=== PATIENT | male | born 1980 | race Caucasian/White ===

== ENCOUNTER 2022-05-21 10:06 | Outpatient (CLI) | payer BC, SELFPAY ==
[2022-05-21 10:27] LABS: Hematocrit 42.3 % (40.0-54.0); Hemoglobin 13.8 g/dL (14.0-18.0); Mean Corpuscular HGB Conc 32.6 g/dL (32.0-36.0); Mean Corpuscular Hemoglobin 27.7 pg (27.0-31.0); Mean Corpuscular Volume 84.9 fL (78.0-102.0); Mean Platelet Volume 10.2 fl (8.7-11.0); Platelet Count Result 255 K/mm3 (150-420); Red Blood Count 4.98 M/mm3 (4.70-6.10); Red Cell Distribution Width 13.1 % (11.6-14.4); White Blood Count 9.2 K/mm3 (4.8-10.8)
[2022-05-21 11:07] LABS: Alanine Aminotransferase 35 U/L (16-63); Albumin Level 3.5 g/dL (3.4-5.0); Alkaline Phosphatase 81 U/L (46-116); Anion Gap 7 mmol/L (8-16); Aspartate Amino Transferase 16 U/L (15-37); Bilirubin,Total 0.4 mg/dL (0.00-1.00); Blood Urea Nitrogen 19 mg/dL (7-18); Calcium 8.7 mg/dL (8.5-10.1); Carbon Dioxide 30 mmol/L (21-32); Chloride 104 mmol/L (98-108); Cholesterol 114 mg/dL (0-200); Estimated Glomerular Filt Rate > 60; Glucose 94 mg/dL (70-99); HDL Direct 29 mg/dL (40-60); LDL Cholesterol Calculated 43 mg/dL (<130); Osmolality Calculated 294 mOsm/kg (285-295); Potassium 4.5 mmol/L (3.5-5.1); Sodium 141 mmol/L (136-145); Total Protein 7.1 g/dL (6.4-8.2); Triglycerides 209 mg/dL (0-150)
== END 2022-05-21 10:07 | disposition home or self-care (01) ==
PROVIDERS: PCP Family Medicine; Visit Provider Family Medicine
DX: I25.10 Atherosclerotic heart disease of native coronary artery without angina pectoris (principal)
CPT/HCPCS: 36415; 80053; 80061; 85027

== ENCOUNTER 2023-03-23 14:43 | Outpatient (CLI) | payer BC, SELFPAY ==
--- NOTE | 2023-03-23 14:50 | ECG_ITS ---
Measurements Intervals [place] Rate: 69 P: 56 HI: 179 QRS: -62 QRSD: 152 T: 74 QT: 396 QTc: 426 Interpretive Statements SINUS RHYTHM LEFT AXIS DEVIATION LEFT BUNDLE BRANCH BLOCK ABNORMAL ECG NO PREVIOUS ECG AVAILABLE FOR COMPARISON Electronically Signed On 03-23-2023 15:04:45 PROPERTIES SUPERVISOR by Blake Martínez D.O.
== END 2023-03-23 14:44 | disposition home or self-care (01) ==
LOC: CHSCARD 14:47
PROVIDERS: PCP Family Medicine; Visit Provider Family Medicine
DX: I25.10 Atherosclerotic heart disease of native coronary artery without angina pectoris (principal); I44.7 Left bundle-branch block, unspecified; R94.31 Abnormal electrocardiogram [ECG] [EKG]
CPT/HCPCS: 93005

== ENCOUNTER 2024-09-12 16:29 | Outpatient (CLI) | payer BC, SELFPAY ==
--- OUTSIDE RECORDS SUMMARY | 2024-09-12 16:33 | XMS_ITS | Encounter Summary ---
Author Organization [facility] Address [facility] [place] [address] Care Team Providers Care Graduate Teacher Education Name Role Phone Vitaly France MD Primary Care Provider [phone] Neto Nelson MD Unavailable Unavailab Santana Holder MD Unavailable UnavailMarek Cox MD Unavailable Unavailable Clem Bryant MD Unavailable Unavail able Angelita Hopper MD Unavailable [phone] Katia Rivas MD Unavailable Encounter Details Date Type Department Care Team (Late st Contact Info) Description 09/24/2015 Abstract [facility] [address], [place] [address] , Generic Conversion, Social History Tobacco Use Types Packs/Day Years Used Date Smoking Tobacco: Former Alcohol Use Standard Drinks/Week Comments No 0 (1 standard drink = 0.6 oz pur e alcohol) Sex and Gender Information Value Date Recorded Sex Assigned at Not on file Legal Sex Male 9:43 PM CDT Gender Identity Not on file Sexual Orientation Not on file Occupation Industry Job Start Date Job End Date 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 [employer] Not on file Not on file No t on file documented as of this encounter Plan of Treatment Not on file documented as of this encounter Visit Diagnoses Not on filedocumented in this encounter Additional Health Concerns Infection Onset Date Last Indicated Resolved Time COVID-19 Rule Out 04/24/2021 04/24/2021 04/24/2021 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 documented as of this encounter Care Teams Graduate Teacher Education Relationship Specialty Start Date End Date Vitaly France MD PCP - General FAMILY PRACTICE 09/18/15 Neto Nelson MD CARDIOVASCULAR DISEASE 09/18/15 04/28/18 Santana Quiros MD [place] Title I Instructional Assistant CARDIOVASCULAR DISEASE 05/28/18 Marek Monroy MD Consulting Physician INTERVENTIONAL CARDIOLOGY 11/22/18 01/23/21 Clem Bryant MD [place] Title I Instructional Assistant CARDIOVASCULAR DISEASE 04/16/20 Angelita Hopper MD [address] [place] [address] Consulting Physician CARDIOVASCULAR DISEASE 01/24/21 Katia Rivas MD [address] [place] [address] Consulting Physician CARDIOVASCULAR DISEASE 03/24/22 documented as of this encounter
--- OUTSIDE RECORDS SUMMARY | 2024-09-12 16:33 | XMS_ITS | Encounter Summary ---
Author Organization [facility] Address [facility] [place] [address] Care Team Providers Care Construction Code Administrator Name Role Phone Vitaly France MD Primary Care Provider [phone] Neto Nelson MD Unavailable Unavailab Santana Holder MD Unavailable Unavailabl Marek Breaux MD Unavailable Unavailable Clem Bryant MD Unavailable Unavail able Angelita Hopper MD Unavailable [phone] Katia Rivas MD Unavailable Encounter Details Date Type Department Care Team (Late st Contact Info) Description 04/07/[address] 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 on file Not on file No t on file documented as of this encounter Plan of Treatment Not on file documented as of this encounter Visit Diagnoses Not on filedocumented in this encounter Additional Health Concerns Infection Onset Date Last Indicated Resolved Time COVID-19 Rule Out 04/24/2021 04/24/2021 04/24/2021 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 documented as of this encounter Care Teams Construction Code Administrator Relationship Specialty Start Date End Date Vitaly France MD PCP - General FAMILY PRACTICE 09/18/15 Neto Nelson MD CARDIOVASCULAR DISEASE 09/18/15 04/28/18 Santana Quiros MD [place] Sound Technician CARDIOVASCULAR DISEASE 05/28/18 Marek Monroy MD Consulting Physician INTERVENTIONAL CARDIOLOGY 11/22/18 01/23/21 Clem Bryant MD [place] Sound Technician CARDIOVASCULAR DISEASE 04/16/20 Angelita Hopper MD [address] [place] [address] Consulting Physician CARDIOVASCULAR DISEASE 01/24/21 Katia Rivas MD [address] [place], [place] [id number] Consulting Physician CARDIOVASCULAR DISEASE 03/24/22 documented as of this encounter
--- OUTSIDE RECORDS SUMMARY | 2024-09-12 16:33 | XMS_ITS | Clinical Summary ---
Author Organization [facility] Address [address] [place] [address] Care Team Providers Care Dependency Director Name Role Phone Vitaly France MD Primary Care Provider [phone] Santana Quiros MD Unavailable Unavailabl e Angelita Hopper MD Unavailable [phone] Katia Rivas MD Unavailable Allergies No known active allergies Medications aspirin 81 MG tablet Take 81 mg by mouth daily. 06/21/2015 Active fish oil 1000 MG Cap capsule Take 2,000 mg by mouth every morning. Active nitroglycerin 0.[address] 0.4 mg under the tongue every 5 (five) minutes as needed for Chest Pain. Active multi vitamin/mineral s tablet Take 1 tablet by mouth daily. Active famotidine 20 MG tablet Take 20 mg by mouth daily. Active spironolactone 25 MG tablet Take 1 tablet (25 mg total) by mouth daily. 30 tablet 11 12/21/2020 Active carvedilol 6.25 MG tablet Take 1 tablet (6.25 mg total) by mouth 2 (two) times daily. 60 tablet 12 05/17/2021 Active losartan (COZAAR) 50 MG tablet Take 1 tablet (50 mg total) by mouth daily. 30 tablet 11 01/29/2022 Active clopidogrel (PLAVIX) 75 MG tablet Take 1 tablet (75 mg total) by mouth daily. 90 tablet 3 02/04/2022 Active atorvastatin (LIPITOR) 80 MG tablet Take 1 tablet (80 mg total) by mouth every evening. 90 tablet 3 04/01/2022 Active Active Problems Problem Noted Date Diagnosed Date Ischemic cardiomyopathy 11/23/2018 Chest pain 09/21/2018 S/P drug eluting coronary stent placement 2017 Overview (06/15/2018): Xietammy Karishma GARTH of mid RCA Hyperlipidemia 09/24/2015 Hypertension 09/24/2015 Heart attack ([facility] 06/19/2015 Overview (10/05/2015): Recent acute coronary syndrome-anterior ST-elevation [place] status post thrombectomy followed by angioplasty and drug-eluting stent to the proximal LAD stenosis of 100?? with buddhism of NICOL-3 flow, currently angina free and tolerating moderate to severely strenuous activity without limitations. CAD (coronary artery disease) Family History Medical History Relation Comments CABG Father Heart Attack Father First [place] at age 18 Stent Cardiac Father CABG Maternal Grandfather Heart Attack Maternal Grandfather Open Heart Maternal Grandfather Valve Disease Maternal Grandfather Heart Attack Maternal Grandmother Stroke Maternal Grandmother Stent Cardiac Mother beginning in her 40s CABG Paternal Grandfather Heart Attack Paternal Grandfather Relation Status Comments Father Maternal Grandfather Maternal Grandmother Mother Paternal Grandfather Social History Tobacco Use Types Packs/Day Years Used Date Smoking Tobacco: Former Cigarettes Smokeless Tobacco: Current Chew Tobacco Cessation:Ready to Q uit: Not Asked; Counseling Given: Not Answered Alcohol Use Standard Drinks/Week Comments Not Currently 0 (1 standard drink = 0.6 oz pur e alcohol) Sex and Gender Information Value Date Recorded Sex Assigned at Not on file Legal Sex Male 9:43 PM CDT Gender Identity Not on file Sexual Orientation Not on file Occupation Industry Job Start Date Job End Date 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[employer] 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 file Not on file No t on file Last Filed Vital Signs Vital Sign Reading Time Taken Comments Blood Pressure 125/70 07/07/2022 2:17 PM CDT Pulse 70 07/07/2022 2:17 PM CDT Temperature 37 C (98.6 F) 04/24/2021 10: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 Respiratory Rate 18 07/07/2022 2:17 PM CDT Oxygen Saturation 98% 07/07/2022 2:17 PM CDT Inhaled Oxygen Concentration - - Weight 154.7 kg (341 lb) 07/07/2022 2:17 PM CDT Height 182.9 cm (6') 07/07/2022 2:17 PM CDT Body Mass Index 46.25 07/07/2022 2:17 PM CDT Plan of Treatment Health Maintenance Due Date Last Done Comments ASCVD Statin 1978 Colorectal Cancer Screening Colonoscopy (10 Years) 1978 Annual Physical 1981 Hepatitis C 01/23/1996 DTaP, Tdap and Td Vaccines ( 1 - Tdap) 1997 Hepatitis B Vaccines (1 of 3 - 19+ 3-dose series) 1997 Pneumococcal Vaccine: Pediatrics (0 to 5 Years) and At-Risk Patients (6 to 49 Years) (1 of 2 - PCV) 1997 ASCVD LDL 09/23/2019 09/22/2018, 06/20/2015 COVID-19 Vaccine (3 - 2023-2 5 season) 2023 11/17/2020, 10/17/2020 Meningococcal B Vaccine Aged Out No l onger eligible based on patient's age to complete this topic Meningococcal Vaccine Aged Out No caridad elizabeth eligible based on patient's age to complete this topic RSV Immunizations Under 20 Months Aged Out No longer eligible b ased on patient's age to complete this topic Medical Devices Implanted Type Area Head Animal Trainer Device Identifier Shelf Expiration Date Model / Serial / Lot Stent Xience Karishma Garth [id number] - [id number] Implanted:Qty: 1 on 02/26/2018 by Neto Nelson MD at [facility] Stent Coronary [employer]AJ[employer] VASCULAR 11/30/2018 [id number] / / [id number] Procedures Procedure Name Priority Date/Time Associated Diagnosis Comments LIPID PANEL Routine 09/22/2018 3:19 AM CDT from Last 3 Months or Most Recently Relevant to Health Maintenance Results * (ABNORMAL) LIPID PANEL (09/22/2018 3:19 AM CDT) CHOLESTEROL 81 MG/DL 09/22/2018 4:02 AM CDT [facility] Comment:DESIRABLE: <200 TRIGLYCERIDES 132 MG/DL 09/22/2018 4:02 AM T [facility] Comment:<150 NORMAL HDL 26(L) >39 MG/DL 09/22/2018 4:02 AM T [facility] LDL (CALCULATED) 29 MG/DL 09/23/19 19 4:02 AM CDT [facility] Comment:<100 OPTIMAL VLDL CALCULATION 26 MG/DL 09/23/19 19 4:02 AM CDT [facility] Comment:REFERENCE RANGE NOT ESTABLISHED CHOL/HDL RATIO 3.1 09/22/2018 4:02 AM T [facility] Comment:REFERENCE RANGE NOT ESTABLISHED LDL/HDL 1.1 09/22/2018 4:02 AM T [facility] Comment:REFERENCE RANGE NOT ESTABLISHED NON HDL CHOLESTEROL 55 MG/DL 09/22/2018 4:02 AM T [facility] Comment:REFERENCE RANGE NOT ESTABLISHED 09/22/2018 3:19 AM CDT Zurdo Pierre MD LABORATORY Final Res ult [facility] [address] [place] [phone], [id number] from Last 3 Months or Most Recently Relevant to Health Maintenance Insurance [facility] Advance Directives * Full Code (Latest Code Status on File) Date Activated Date Inactivated Comments 09/21/2018 5:03 PM 09/22/2018 2:30 PM * Full Code Date Activated Date Inactivated Comments 02/26/2018 4:42 PM 02/26/2018 9:05 PM Care Teams Dependency Director Relationship Specialty Start Date End Date Vitaly France MD PCP - General FAMILY PRACTICE 09/18/15 Santana Quiros MD [place] Beer Cooler CARDIOVASCULAR DISEASE 05/28/18 Angelita Hopper MD [address] [place], [place] [address] Consulting Physician CARDIOVASCULAR DISEASE 01/24/21 Katia Rivas MD [address] [place] [address] Consulting Physician CARDIOVASCULAR DISEASE 03/24/22
--- OUTSIDE RECORDS SUMMARY | 2024-09-12 16:33 | XMS_ITS | Encounter Summary ---
Author Organization [facility] Address [facility] [place] [address] Care Team Providers Care Cash Teller Name Role Phone Vitaly France MD Primary Care Provider [phone] Neto Nelson MD Unavailable Unavailab Santana Holder MD Unavailable Unavailabl Marek Breaux MD Unavailable Unavailable Clem Bryant MD Unavailable Unavail able Angelita Hopper MD Unavailable [phone] Katia Rivas MD Unavailable Encounter Details Date Type Department Care Team (Late st Contact Info) Description 05/30/2017 Abstract [facility] [address] [place] [address] , Generic Conversion, Social History Tobacco Use [...] Industry Job Start Date Job End Date 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 file Not on file No t on file documented as of this encounter Plan of Treatment Not on file documented as of this encounter Visit Diagnoses Not on filedocumented in this encounter Additional Health Concerns Infection Onset Date Last Indicated Resolved Time COVID-19 Rule Out 04/24/2021 04/24/2021 04/24/2021 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 documented as of this encounter Care Teams Cash Teller Relationship Specialty Start Date End Date Vitaly France MD PCP - General FAMILY PRACTICE 09/18/15 Neto Nelson MD CARDIOVASCULAR DISEASE 09/18/15 04/28/18 Santana Quiros MD [place] Auto Body Man CARDIOVASCULAR DISEASE 05/28/18 Marek Monroy MD Consulting Physician INTERVENTIONAL CARDIOLOGY 11/22/18 01/23/21 Clem Bryant MD [place] Auto Body Man CARDIOVASCULAR DISEASE 04/16/20 Angelita Hopper MD [address] [place] [address] Consulting Physician CARDIOVASCULAR DISEASE 01/24/21 Katia Rivas MD [address] [place] [address] Consulting Physician CARDIOVASCULAR DISEASE 03/24/22 documented as of this encounter
--- OUTSIDE RECORDS SUMMARY | 2024-09-12 16:33 | XMS_ITS | Encounter Summary ---
Author Organization [facility] Address [facility] [place] [address] Care Team Providers Care Paper Folder Name Role Phone Vitaly France MD Primary Care Provider [phone] Santana Quiros MD Unavailable UnavailMarek Cox MD Unavailable Unavailable Clem Bryant MD Unavailable Unavail able Angelita Hopper MD Unavailable [phone] Katia Rivas MD Unavailable Encounter Details Date Type Department Care Team (Late st Contact Info) Description 10/21/2019 Abstract [facility] [place] [address] [place] [address] Santana Quiros MD Social History Tobacco Use Types Packs/Day Years Used Date Smoking Tobacco: Former Cigarettes Smokeless Tobacco: Current Chew Alcohol Use Standard Drinks/Week Comments Yes 8.3 (1 standard drink = 0.6 oz p ure alcohol) Sex and Gender Information Value Date Recorded Sex Assigned at Not on file Legal Sex Male 9:43 PM CDT Gender Identity Not on file Sexual Orientation Not on file Occupation Industry Job Start Date Job End Date 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 Answer Date of Assessment Author Status No 09/21/2018 4:48 PM CDT Activ e * Do you have serious difficulty walking or climbing stairs? Answer Date of Assessment Author Status No 09/21/2018 4:48 PM CDT Miranda Jaeger R N Active * Do you have difficulty dressing or bathing? Answer Date of Assessment Author Status No 09/21/2018 4:48 PM CDT Miranda Jaeger R N Active * Because of a physical, mental, or emotional condition, do you have difficulty doing errands alone such as visiting a doctor's office or shopping? Answer Date of Assessment Author Status No 09/21/2018 4:48 PM CDT Miranda Jaeger R N Active documented as of this encounter Mental Status * Because of a physical, mental, or emotional condition, do you have serious difficulty concentrating, remembering, or making decisions? 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 documented as of this encounter Care Teams Paper Folder Relationship Specialty Start Date End Date Vitaly France MD PCP - General FAMILY PRACTICE 09/18/15 Santana Quiros MD [place] Rock Mason Apprentice CARDIOVASCULAR DISEASE 05/28/18 Marek Monroy MD Consulting Physician INTERVENTIONAL CARDIOLOGY 11/22/18 01/23/21 Clem Bryant MD [place] [employer] Mason Apprentice CARDIOVASCULAR DISEASE 04/16/20 Angelita Hopper MD [facility] [place] [address] Consulting Physician CARDIOVASCULAR DISEASE 01/24/21 Katia Rivas MD [address] [place] [address] Consulting Physician CARDIOVASCULAR DISEASE 03/24/22 documented as of this encounter
--- OUTSIDE RECORDS SUMMARY | 2024-09-12 16:33 | XMS_ITS | Encounter Summary ---
Author Organization [facility] Address [facility] [place] [address] Care Team Providers Care Plastics Repairer Name Role Phone Vitaly France MD Primary Care Provider [phone] Santana Quiros MD Unavailable Unavailabl e Angelita Hopper MD Unavailable [phone] Katia Rivas MD Unavailable Encounter Details Date Type Department Care Team (Latest Contact Info) Description 08/12/2022 FlowPay Message [facility] [place] [address] Katia Rivas MD [address] [place] [address] Question regarding [facility] CAROTID DUPLEX JESSICA Social History Tobacco Use Types Packs/Day Years Used Date Smoking Tobacco: Former Cigarettes Smokeless Tobacco: Current Chew Alcohol Use Standard Drinks/Week Comments Not Currently 0 (1 standard drink = 0.6 oz pur e alcohol) Sex and Gender Information Value Date Recorded Sex Assigned at Not on file Legal Sex Male 9:43 PM CDT Gender Identity Not on file Sexual Orientation Not on file Occupation Industry Job 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 No / Unsure 08/06/2022 3:42 PM CDT documented as of this encounter Functional Status [...] Diagnoses Not on filedocumented in this encounter Care Teams Plastics Repairer Relationship Specialty Start Date End Date Vitaly France MD PCP - General FAMILY PRACTICE 09/18/15 Santana Quiros MD [place] Tool [employer] Fixture Repairer CARDIOVASCULAR DISEASE 05/28/18 Angelita Hopper MD [address] [place], [place] [address] Consulting Physician CARDIOVASCULAR DISEASE 01/24/21 Katia Rivas MD [address] [place] [address] Consulting Physician CARDIOVASCULAR DISEASE 03/24/22 documented as of this encounter
--- OUTSIDE RECORDS SUMMARY | 2024-09-12 16:33 | XMS_ITS | Data Portability ---
Author Organization [facility] Address [address] [place] [address] Care Team Providers Care Shipboard Intelligence Analyst Name Role Phone NARA BUCKNER Primary Care Provider Assessment No assessment recorded. Plan of Treatment Reminders Order Date Submit Date Provider Last Modified By Organization Details Last Modified Time Details Appointments ANY 15 2024 03:30P Abelardo Buckner PA-C Not available Not available Not available Lab urinaly sis, complet e 2024 025 [facility], [address] [facility], [facility], [place], [address], 09/12/2024 17:09:51 CBC 2024 025 [facility], [address] [facility], [facility], [place], [address], 09/12/2024 17:09:50 CMP, serum or plasma 2024 025 [facility], [address] [facility], [facility], [place], [address], 09/12/2024 17:09:51 lipid panel, serum 2024 025 [facility], [address] [facility], [address], [place], [address], 09/12/2024 17:09:51 HbA1c (hemogl obin A1c), blood 2024 025 [facility], [address], [address], [place], [address], 09/12/2024 17:09:50 influen za virus A + B + SARS-Co V-2 (COVID1 9) Ag panel, rapid IA, upper respira tory specime n 2024 025 [email or web address] In-Office Order, Internal Use Only DO Not Attach Compendium DO Not Attach Compendium, Do Not Delete/merge, [id number] 05/04/2024 12:30:42 HbA1c (hemogl obin A1c), blood 2014 015 [facility], [address], [address], [place], [address], 05/17/2014 13:29:04 CMP, serum or plasma 2014 015 [facility], [address], [address], [place], [address], 05/17/2014 14:08:57 CBC 2014 015 [facility], [address], [address], [place], [address], 05/17/2014 14:08:59 lipid panel, serum 2014 015 [facility], [address], [address], [place], [address], 05/17/2014 14:08:57 TSH + free T4, serum 2014 015 [facility], [address], [address], [place], [address], 05/17/2014 14:08:58 Referral cardiol ogist referra l 2024 025 remigio Chu MD, [address], [place], [address], 05/04/2024 13:17:51 Procedures None recorde d. Surgeries None recorde d. Imaging x-ray, lumbar spine, 3 view 2014 015 [email or web address] Not available 05/19/2014 16:47:45 MRI, brain, ms protoco l 2014 015 [facility] (Radiology[facility] [place], [address], 05/22/2014 13:10:48 Medication Orders carvedi lol 6.25 mg tablet 2024 025 [facility], [facility] [place], [address], 09/12/2024 17:09:42 Tamiflu 75 mg capsule 2024 025 [facility], [facility] [place], [address], 09/12/2024 16:40:27 pravast atin 80 mg tablet 2024 025 [facility], [facility] [place], [address], 05/04/2024 12:31:09 naproxe n 500 mg tablet 2014 015 [employer], [address] [place] [address], [address], 05/04/2024 12:13:32 cyclobe nzaprin e 10 mg tablet 2014 [facility]15 [facility], [address] [place], [address], 05/04/2024 12:13:12 Patient TargetsNo targets recorded. Patient Instructions Encounter Date Encounter Id Patient Instructions Last Modified By Organization Details Last Modified Time 05/16/2014 [id number] have testing don e as discussed, I will call results, a referral to ortho after xray results, return to clinic as needed or for any questions [email or web address] Not available 05/16/2014 15:54:59 05/04/2024 [id number] cough: care instructions [email or web address] Not available 05/04/2024 12:30:42 A healthy lifestyle: care instructions [email or web address] Not available 05/04/2024 12:30:42 09/12/2024 [id number] A healthy lifestyle: care instructions [email or web address] Not available 09/12/2024 17:09:41 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 Referral for Co ronary arteriosclerosis Referring Physician: Nara Buckner, Family Medicine, Encounter Date: 05/04/2024 Results Created Date Observation Date Name Description Value Unit Range Abnormal Flag Note LastModifiedBy Organization Detail LastModifiedTime 09/23/1909/22/2018 Lipid 1996 panel - Serum or Plasm a cholesterol [mass/volume ] in serum or plasma 81 text: mg/dL DAYDAY STERO L 81 MG/DL 09/22 4:02 AM [facility] Not Available Not Available 05/20/2024 12:21:05 09/23/1909/22/2018 Lipid 1996 panel - Serum or Plasm a triglyceride [mass/volume ] in serum or plasma 132 text: mg/dL TRIGL YCERI TRUMAN 132 MG/DL 09/22 4:02 AM [facility] Not Available Not Available 05/20/2024 12:21:05 09/23/1909/22/2018 Lipid 1996 panel - Serum or Plasm a cholesterol in HDL [mass/volume ] in serum or plasma 26 text: >39 mg/dL low HDL 26 (L) >39 MG/DL 09/22 4:02 AM [facility] Not Available Not Available 05/20/2024 12:21:05 09/23/1909/22/2018 Lipid 1996 panel - Serum or Plasm a cholesterol in LDL [mass/volume ] in serum or plasma by calculation 29 text: mg/dL LDL (CALC ULATE D) 29 MG/DL 09/22 4:02 AM [facility] Not Available Not Available 05/20/2024 12:21:05 09/23/19 19 09/22/2018 Lipid 1996 panel - Serum or Plasm a cholesterol in VLDL [mass/volume ] in serum or plasma by calculation 26 text: mg/dL VLDL CALCU LATIO N 26 MG/DL 09/22 4:02 AM [facility] Not Available Not Available 05/20/2024 12:21:05 09/23/1909/22/2018 Lipid 1996 panel - Serum or Plasm a cholesterol. total/choles terol in HDL [mass ratio] in serum or plasma 3.1 CHOL/ HDL RATIO 3.1 09/22 4:02 AM [facility] Not Available Not Available 05/20/2024 12:21:05 09/23/1909/22/2018 Lipid 1996 panel - Serum or Plasm a cholesterol in LDL/choleste rol in HDL [mass ratio] in serum or plasma 1.1 LDL/H DL 1.1 09/22 4:02 AM [facility] Not Available Not Available 05/20/2024 12:21:05 09/23/1909/22/2018 Lipid 1996 panel - Serum or Plasm a cholesterol non HDL [mass/volume ] in serum or plasma 55 text: mg/dL NON HDL DAYDAY STERO L 55 MG/DL 09/22 4:02 AM [facility] Not Available Not Available 05/20/2024 12:21:05 09/23/1909/22/2018 Lipid 1996 panel - Serum or Plasm a interpretati on and review of laboratory results Abnorm al Not Available Not Available 12:21:05 05/04/19 25 05/04/2024 influ parisa virus A + B + SARS- CoV-2 (COVI D19) Ag panel , rapid IA, upper respi rator y speci men Flu A positi ve Not Available In-Office Order Internal Use Only DO Not Attach Compendium DO Not Attach Compendium, Do Not Delete/merge, [id number] 05/04/2024 12:21:33 05/04/19 25 05/04/2024 influ parisa virus A + B + SARS- CoV-2 (COVI D19) Ag panel , rapid IA, upper respi rator y speci men Flu B negati ve Not Available In-Office Order Internal Use Only DO Not Attach Compendium DO Not Attach Compendium, Do Not Delete/merge, [id number] 05/04/2024 12:21:33 05/04/19 25 05/04/2024 influ parisa virus A + B + SARS- CoV-2 (COVI D19) Ag panel , rapid IA, upper respi rator y speci men Rapid SARS CoV 2 Ag, QL IA, respiratory specimen negati ve Not Available In-Office Order Internal Use Only DO Not Attach Compendium DO Not Attach Compendium, Do Not Delete/merge, [id number] 05/04/2024 12:21:33 05/18/19 15 05/17/2014 x-ray , lumba r spine , 3 view No observ ation record ed. [address], [address], 05/17/2014 13:56:59 05/14/19 16 05/14/2015 imagi ng/di agnos tic resul t No observ ation record ed. [email or web address] [address], [address], 05/14/2015 13:31:58 Result Notes None recorded. Problems Name Problem SNOMED Code Status Onset Date Resolution Date Notes Provider Name and Address Organization Details Recorded Time Obesity 230696474 Active Remington Chapin [employer]USTRI[employer]OOFER HELPER-C Attn: Laura scott,[address] [place], [address], [place] [facility] 5 15:54:58 Chronic low back pain 178922540 Active Remington Chapin INDUSTRIAL ROOFER HELPER-C Attn: Laura g,[address] [place], [address], [facility] - [facility] 5 15:54:58 Fatigue 41140411 Active Remington Chapin INDUSTRIAL ROOFER HELPER-C Attn: Laura g,[address] [place], [address], [facility] 5 15:54:58 Visual impairment 763605007 Active Remington DORSEY Attn: Elhamverenice scott,[address], [place], [address], [facility] 5 15:54:58 Problem Notes None recorded. Procedures Surgical History Date Name Laterality Status Provider Name and Address Organization Details Recorded Time Appendectomy completed Ludmila Cheema LPN [facility] 05/11/2014 08:35:56 Vasectomy completed Ludmila Cheema LPN [facility] 05/11/2014 08:35:56 Imaging Results None recorded. Procedure Notes None recorded. Medical Equipment None Reported. Allergies No known drug allergies Medications Name Sig Start Date Stop Date Status Note LastModified by Organization Details LastModified Time losartan 50 mg tablet TAKE 1 TABLET BY MOUTH ONCE DAILY active Not Available Not Available No t Available cyclobenzap rine 10 mg tablet Take 1 tablet by mouth every 12 hours for 2 days then every night at bedtime for 7 days then as needed at bedtime for muscle pains 05/04 completed Not Available Not Available Not Available carvedilol 6.25 mg tablet Take 1 tablet twice a day by oral route for 90 days. 2024 active Not Available Not Available Not Avai lable Tamiflu 75 mg capsule Take 1 capsule twice a day by oral route for 10 days. 09/12 completed Not Available Not Available Not Available aspirin 81 mg tablet,gabriella yed release TAKE 1 TABLET BY MOUTH ONCE DAILY active Not Available Not Available No t Available famotidine 20 mg tablet TAKE 1 TABLET BY MOUTH TWICE DAILY active Not Available Not Available No t Available pravastatin 80 mg tablet TAKE ONE TABLET BY MOUTH DAILYN EEDS APPT BEFORE NEXT REFILL 2024 active Not Available Not Available Not Avai lable nitroglycer in 0.4 mg sublingual tablet DISSOLVE ONE TABLET UNDER THE TONGUE EVERY 5 MINUTES NEEDED FOR CHEST PAIN. DO NOT EXCEED A TOTAL OF 3 DOSES IN 15 MINUTES active Not Available Not Available No t Available naproxen 500 mg tablet Take 1 tablet by oral route every 12 hours for 7 days then as needed every 12 hours for pain 05/04 completed Not Available Not Available Not Available Vitals Date Recorded Body weight Body mass index (BMI) Body height Oxygen saturation Oxygen saturation in Arterial blood by Pulse oximetry Heart rate Systolic blood pressure Diastolic blood pressure Provider Name and Address Organization Details Last Updated DateTime 5 458069. 41 g 46.1 kg/m2 182.88 cm 95 % 95 % 65 /min 138 mm[Hg] 86 mm[Hg] Marlee Metzger MA [facility] 5 12:23:28 Date Recorded Respiratory rate Body weight Heart rate Body mass index (BMI) Body height Body temperature Systolic blood pressure Diastolic blood pressure Provider Name and Address Organization Details Last Updated DateTime 5 18 /min 589655. 51253 g 78 /min 43.9 kg/m2 182.88 cm 98.4 [degF] 130 mm[Hg] 84 mm[Hg] Ludmila Cheema LPN [facility] 5 14:56:55 Date Recorded Body height Body mass index (BMI) Body weight Heart rate Oxygen saturation Oxygen saturation in Arterial blood by Pulse oximetry Systolic blood pressure Diastolic blood pressure Provider Name and Address Organization Details Last Updated DateTime 5 182.88 cm 41.2 kg/m2 881907. 08 g 65 /min 97 % 97 % 124 mm[Hg] 78 mm[Hg] Marlee Metzger MA [facility] 5 16:39:53 Social History Question Answer Notes LastModified by Organizat ion Details LastModified Time Tobacco Smoking Status Former Smoker Quit in 2015 Marlee Metzger MA null, [facility] 05/04/2024 12:19:41 What Is Your Level Of Caffeine Consumption? Moderate Information not available 05/04/2024 What Type Of Diet Are You Following? REGULAR Information not available 05/04/2024 What Was The Date Of Your Most Recent Tobacco Screening? 09/12/2024 Information not available 09/12/2024 What Is Your Relationship Status? Information not available 05/04/2024 Do You Have Smoke And Carbon Monoxide Detectors In Your Home? No Information not available 05/04/2024 Are You Passively Exposed To Smoke? Yes Information not available 05/04/2024 Has Tobacco Cessation Counseling Been Provided? Yes Information not available 05/04/2024 On What Date Was Tobacco Cessation Counseling Provided? 09/12/2024 Information not available 09/12/2024 Sex: Unknown Functional Status Question Answer Note LastModified by Organizat ion Details LastModified Time Do you use any illicit or recreational drugs? No Information not available 05/04/2024 Do you or have you ever used any other forms of tobacco or nicotine? Yes Information not available 05/04/2024 What is your level of alcohol consumption? None Information not available 05/04/2024 Do you or have you ever used smokeless tobacco? Currently chews tobacco Information not available 05/04/2024 Are you currently employed? 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 Never used electronic cigarettes Information not available 05/04/2024 Mental Status Question Answer Note LastModified by Organization D etails LastModified Time Do you feel stressed (tense, restless, nervous, or anxious, or unable to sleep at night)? [id number] Information not available 05/04/2024 Family History Relationship Description Onset Age of this Age Resolved Age Notes LastModified by Organization Details LastModified Time Father Attention deficit hyperactivit y disorder [email or web address] Not available 05/2014 15:27:41 Father Depressive disorder [email or web address] Not available 05/2014 15:27:41 Father Heart disease [email or web address] Not available 05/2014 15:27:41 Father Hypertensive disorder Not available 05/2014 15:27:41 Father Hypercholest erolemia [email or web address] Not available 05/2014 15:27:41 Father Multiple sclerosis [email or web address] Not available 05/2014 15:27:41 Mother Heart disease [email or web address] Not available 05/2014 15:27:41 Mother Hypertensive disorder [email or web address] Not available 05/2014 15:27:41 Mother Hypercholest erolemia [email or web address] Not available 05/2014 15:27:41 Brother Multiple sclerosis [email or web address] Not available 05/2014 15:27:41 Medical History Condition Response Coronary Artery Disease N Other N Atrial Fibrillation N High Blood Pressure N Thyroid Problems N Kidney or Bladder Problems N GI Problems N Depression N COPD N Blood Clots N Have you had a mammogram in the last yea r? N Eating Disorder N Skin Problems N Anemia N Heart Attack (AK) N Anxiety Disorder N Diabetes N Muscle, Joint, or Bone Problems N Arthritis N Seizures/Epilepsy N Have you had a colonoscopy in the last 1 0 years? N Acid Reflux (GERD) N Hyperlipidemia Y Cancer N Stroke N Asthma N Allergies N Have you had a PSA blood test in the las t year? N ADHD N Substance Abuse N High Cholesterol N Hepatitis N Liver Disease N Schizophrenia N Headaches N Heart Failure N Osteoporosis N Immunizations Vaccine Type Date Status Note Provider Nam e and Address Organization Details Recorded Time COVID-19, mRNA, LNP-S, PF, 30 mcg/0.3 mL dose 10/17/2020 completed Not Available [facility] 16:19:31 COVID-19, mRNA, LNP-S, PF, 30 mcg/0.3 mL dose 11/17/2020 completed Not Available [facility] 16:19:31 Past Encounters Encounter ID Performer Location Encounter Start Date Encounter Closed Date Diagnosis/Indication Diagnosis SNOMED-CT Code Diagnosis ICD10 Code Diagnosis Note [id number] Remington CONN [address] [place] [address] 05/16/2014 14:34:27 05/19/2014 16:47:45 Obesity 036304947 Chronic low back pain 417529683 Fatigue 03660897 Visual impairment 817971912 [id number] Prasanna Medina MD [facility] [address] [place] [address] 05/04/2024 11:45:10 05/05/2024 08:46:50 Cough 20477441 R05.1 Coronary arteriosclerosis 01815716 I25.10 Morbid obesity 793535225 E66.01 Influenza caused by Influenza A virus 204164206 J09.X2 History of myocardial infarction 236492901 I25.2 [id number] Prasanna Medina MD [facility] [address] [place] [address] 09/12/2024 16:16:51 09/12/2024 17:11:33 History of myocardial infarction 325784227 I25.2 Dark-brown colored urine 6338354180 63808 R82.998 Obese class III 50289537 5 E66.813 Health Concerns Section Related Observation LastModified by Organization Detai ls LastModified Time None Recorded Concern Status LastModified by Organization Details LastModified Time None Recorded Advance Directives Directive None Recorded Payers Insurance Date Sequence Insurance Name Policy Number Policy [place] Covered Member ID [place] Member ID Guarantor Name 09/12/2024 1 [place] [id number] Alejandro Coles [id number] Candice Coles 09/12/2024 1 [place] [employer] Alejandro Coles [id number] Candice Coles Notes Date Note Type Note Provider Name and Address Organization Details Recorded Time 05/16/2014 text/html worsening back pain and numbness down right leg. states Dad and Brother has MS, brother was diagnosed at 29 yo. patient is having visual changes and some concerns about MS symptoms, was seen about a year ago for back pain and was informed of need for back surgery but opted against that Remington DORSEY Attn: Accounting,[address] [place], [address], [facility] 05/16/2014 15:55:15 05/04/2024 text/html flu like symptoms for 2 days...also history of multiple vessel disease..was removed from plavix by previous cardio..had a 100 percent blocked maker and AK in 2016..stented 3 vessels total..2016 to 2018... Nara Buckner PA-C Attn: Accounting,[address] [place], [address], [facility] 05/04/2024 12:35:45 09/12/2024 text/html needs refill of carvedilol..also notices dark foamy urine and a transient episode of rt flank pain...personal hx and family hx of AK..has lost 40 pounds thru workout and diet Nara Buckner PA-C Attn: Accounting,[address] [facility], [place], [address], [facility] 09/12/2024 17:11:31
--- OUTSIDE RECORDS SUMMARY | 2024-09-12 16:33 | XMS_ITS | Encounter Summary ---
Author Organization [facility] Address [facility] [place] [address] Care Team Providers Care Security Operations Center Analyst Name Role Phone Vitaly France MD Primary Care Provider [phone] Neto Nelson MD Unavailable Unavailab Santana Holder MD Unavailable UnavailMarek Cox MD Unavailable Unavailable Clem Bryant MD Unavailable Unavail able Angelita Hopper MD Unavailable [phone] Katia Rivas MD Unavailable Encounter Details Date Type Department Care Team (Latest Contact Info) Description 01/19/2018 Abstract [facility] , Soraida Mehta MD Social History Tobacco Use Types Packs/Day [...] 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 [employer] Not on file Not on file No t on file documented as of this encounter Plan of Treatment Not on file documented as of this encounter Visit Diagnoses Not on filedocumented in this encounter Additional Health Concerns Infection Onset Date Last Indicated Resolved Time COVID-19 Rule Out 04/24/2021 04/24/2021 04/24/2021 12:23 PM [employer] documented as of this encounter Care Teams Security Operations Center Analyst Relationship Specialty Start Date End Date Vitaly France MD PCP - General FAMILY PRACTICE 09/18/15 Neto Nelson MD CARDIOVASCULAR DISEASE 09/18/15 04/28/18 aSntana Quiros MD [place] Chocolate Production Machine Operator CARDIOVASCULAR DISEASE 05/28/18 Marek Monroy MD Consulting Physician INTERVENTIONAL CARDIOLOGY 11/22/18 01/23/21 Clem Bryant MD [place] Chocolate Production Machine Operator CARDIOVASCULAR DISEASE 04/16/20 Angelita Hopper MD [address], [place] [address] Consulting Physician CARDIOVASCULAR DISEASE 01/24/21 Katia Rivas MD [address] [place], [place] [address] Consulting Physician CARDIOVASCULAR DISEASE 03/24/22 documented as of this encounter
--- OUTSIDE RECORDS SUMMARY | 2024-09-12 16:33 | XMS_ITS | Encounter Summary ---
Author Organization [facility] Address [facility] [place] [address] Care Team Providers Care Electrical Apprentice Name Role Phone Vitaly France MD Primary Care Provider [phone] Neto Nelson MD Unavailable Unavailab Santana Holder MD Unavailable Unavailabl Marek Breaux MD Unavailable Unavailable Clem Bryant MD Unavailable Unavail able Angelita Hopper MD Unavailable [phone] Katia Rivas MD Unavailable Encounter Details Date Type Department Care Team (Late st Contact Info) Description 01/30/[address] 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 documented as of this encounter Care Teams Electrical Apprentice Relationship Specialty Start Date End Date Vitaly France MD PCP - General FAMILY PRACTICE 09/18/15 Neto Nelson MD CARDIOVASCULAR DISEASE 09/18/15 04/28/18 Santana Quiros MD [place] Data Warehouse Consultant CARDIOVASCULAR DISEASE 05/28/18 Marek Monroy MD Consulting Physician INTERVENTIONAL CARDIOLOGY 11/22/18 01/23/21 Clem Bryant MD [place] Data Warehouse Consultant CARDIOVASCULAR DISEASE 04/16/20 Angelita Hopper MD [address] [place] [address] Consulting Physician CARDIOVASCULAR DISEASE 01/24/21 Katia Rivas MD [address] [place] [address] Consulting Physician CARDIOVASCULAR DISEASE 03/24/22 documented as of this encounter
--- OUTSIDE RECORDS SUMMARY | 2024-09-12 16:33 | XMS_ITS | Continuity of Care Document ---
Author Organization [facility] Address [address] [place] [address] Care Team Providers Care Welder Tech Name Role Phone NARA BUCKNER Primary Care Provider Assessment No assessment recorded. Plan of Treatment Reminders Order Date Submit Date Provider Last Modified By Organization Details Last Modified Time Details Appointments ANY 15 2024 03:30P Abelardo Buckner PATamiC Not available Not available Not available Lab urinalysi s, complete 2024 025 [facility] [address] [facility], [place], [address], 09/12/2024 17:09:51 CBC 2024 025 [facility], [address] [facility], [place], [address], 09/12/2024 17:09:50 CMP, serum or plasma 2024 025 [facility], [address], [address], [place], [address], 09/12/2024 17:09:51 lipid panel, serum 2024 025 [facility], [address], [address], [place], [address], 09/12/2024 17:09:51 HbA1c (hemoglob in A1c), blood 2024 025 [facility], [address], [address], [place], [address], 09/12/2024 17:09:50 Referral None recorded. Procedures None recorded. Surgeries None recorded. Imaging None recorded. Medication Orders carvedilo l 6.25 mg tablet 2024 025 [facility] [address], [address], 09/12/2024 17:09:42 Patient TargetsNo targets recorded. Patient Instructions Encounter Date Encounter Id Patient Instructions Last Modified By Organization Details Last Modified Time 09/12/2024 [id number] A healthy lifestyle: care instructions jnanney Not available 09/12/2024 17:09:41 Reason for Referral None Reported. Problems Name Problem SNOMED Code Status Onset Date Resolution Date Notes Provider Name and Address Organization Details Recorded Time Obesity 405219323 Active Remington Chapin THREE DIMENSIONAL MAP MODELER-C Attn: Accountverenice scott,[address] [facility], [place], [place], [address] [place] [address] 2, [facility] - [facility] 5 15:54:58 Chronic low back pain 921292261 Active Remington Chapin THREE DIMENSIONAL MAP MODELER-C Attn: Accountin g,[address] [facility], [place], [place], [address] [place] [address] 2, [facility] - [facility] 5 15:54:58 Fatigue 89827427 Active Remington Chapin THREE DIMENSIONAL MAP MODELER-C Attn: Accountin g,[address] [facility], [place], [place], [address] [place] [address] 2, [facility] - [facility] 5 15:54:58 Visual impairment 041386540 Active Remington Chapin THREE DIMENSIONAL MAP MODELER-C Attn: Accountin g,[address] [facility], [place], [address], [facility] - SI 5 15:54:58 Problem Notes None recorded. Procedures Surgical History Date Name Laterality Status Provider Name and Address Organization Details Recorded Time Appendectomy completed Ludmila Cheema LPN [facility] 05/11/2014 08:35:56 Vasectomy completed Ludmila Cheema LPN [facility] 05/11/2014 08:35:56 Imaging Results None recorded. Procedure [...] Available Not Available Vitals Date Recorded Body height Body mass index (BMI) Body weight Heart rate Oxygen saturation Oxygen saturation in Arterial blood by Pulse oximetry Systolic blood pressure Diastolic blood pressure Provider Name and Address Organization Details Last Updated DateTime 5 182.88 cm 41.2 kg/m2 339171. 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 Never used electronic cigarettes Information not available 05/04/2024 Mental Status Question Answer Note LastModified by Organization D etails LastModified Time Do you feel stressed (tense, restless, nervous, or anxious, or unable to sleep at night)? [id number] Information not available 05/04/2024 Family History Relationship Description Onset Age of this Age Resolved Age Notes LastModified by Organization Details LastModified Time Father Attention deficit hyperactivit y disorder [email or web address] Not available 05/2014 15:27:41 Father Depressive disorder [email or web address] Not available 05/2014 15:27:41 Father Heart disease [email or web address] Not available 05/2014 15:27:41 Father Hypertensive disorder [email or web address] Not available 05/2014 15:27:41 Father Hypercholest erolemia [email or web address] Not available 05/2014 15:27:41 Father Multiple sclerosis Not available 05/2014 15:27:41 Mother Heart disease Not available 05/2014 15:27:41 Mother Hypertensive disorder [email or web address] Not available 05/2014 15:27:41 Mother Hypercholest erolemia Not available 05/2014 15:27:41 Brother Multiple sclerosis [email or web address] Not available 05/2014 15:27:41 Medical History Condition Response Coronary Artery Disease N Other N High Blood Pressure N Atrial Fibrillation N Thyroid Problems N Kidney or Bladder Problems N GI Problems N Depression N COPD N Blood Clots N Have you had a mammogram in the last yea r? N Skin Problems N Eating Disorder N Anemia N Heart Attack ([place]) N Anxiety Disorder N Diabetes N Muscle, [...] mcg/0.3 mL dose 10/17/2020 completed Not Available [facility] 16:19:31 COVID-19, mRNA, LNP-S, PF, 30 mcg/0.3 mL dose 11/17/2020 completed Not Available [facility] 16:19:31 Past Encounters Encounter ID Performer Location Encounter Start Date Encounter Closed Date Diagnosis/Indication Diagnosis SNOMED-CT Code Diagnosis ICD10 Code Diagnosis Note [id number] Prasanna Medina MD [facility] [address] [place] [address] 09/12/2024 16:16:51 09/12/2024 17:11:33 History of myocardial infarction 737212115 I25.2 Dark-brown colored urine 7326915445 96671 R82.998 Obese class III 58943351 5 E66.813 Health Concerns Section Related Observation LastModified by Organization Detai ls LastModified Time None Recorded Concern Status LastModified by Organization Details LastModified Time None Recorded Payers Encounter Date Sequence Insurance Name Policy Number Policy [place] Covered Member ID [place] Member ID Guarantor Name 09/12/2024 1 [employer] [id number] Alejandro Coles [id number] Candice Coles Notes Date Note Type Note Provider Name and Address Organization Details Recorded Time 09/12/2024 text/html needs refill of carvedilol..also notices dark foamy urine and a transient episode of rt flank pain...personal hx and family hx of [place]..has lost 40 pounds thru workout and diet Nara Buckner PA-C Attn: Accounting,[address] [place], [address], [facility] - [facility] 09/12/2024 17:11:31
--- OUTSIDE RECORDS SUMMARY | 2024-09-12 16:33 | XMS_ITS | Encounter Summary ---
Author Organization [facility] Address [facility] [place] [address] Care Team Providers Care Forestry Patrolman Name Role Phone Vitaly France MD Primary Care Provider [phone] Santana Quiros MD Unavailable UnavailMarek Cox MD Unavailable Unavailable Clem Bryant MD Unavailable Unavail able Angelita Hopper MD Unavailable [phone] Katia Rivas MD Unavailable Encounter Details Date Type Department Care Team (Late st Contact Info) Description 05/31/2018 [facility] [place] [address] [place] [address] Santana Quiros MD Social History [...] Industry Job Start Date Job End Date 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 on file Not on file No t on file documented as of this encounter Plan of Treatment Not on file documented as of this encounter Visit Diagnoses Not on filedocumented in this encounter Additional Health Concerns Infection Onset Date Last Indicated Resolved Time COVID-19 Rule Out 04/24/2021 04/24/2021 04/24/2021 12:23 PM CLOTH CLASSER documented as of this encounter Care Teams Forestry Patrolman Relationship Specialty Start Date End Date Vitaly France MD PCP - General FAMILY PRACTICE 09/18/15 Santana Quiros MD [place] [facility] CARDIOVASCULAR DISEASE 05/28/18 Marek Monroy MD Consulting Physician INTERVENTIONAL CARDIOLOGY 11/22/18 01/23/21 Clem Bryant MD [place] [facility] CARDIOVASCULAR DISEASE 04/16/20 Angelita Hopper MD [address] [place], [place] [address] Consulting Physician CARDIOVASCULAR DISEASE 01/24/21 Katia Rivas MD [address] [place] [address] Consulting Physician CARDIOVASCULAR DISEASE 03/24/22 documented as of this encounter
--- OUTSIDE RECORDS SUMMARY | 2024-09-12 16:33 | XMS_ITS | Encounter Summary ---
Author Organization [facility] Address [facility] [place] [address] Care Team Providers Care Welder Fabricator Name Role Phone Vitaly France MD Primary Care Provider [phone] Neto Nelson MD Unavailable Unavailab Santana Holder MD Unavailable Unavailabl Marek Breaux MD Unavailable Unavailable Clem Bryant MD Unavailable Unavail able Angelita Hopper MD Unavailable [phone] Katia Rivas MD Unavailable Encounter Details Date Type Department Care Team (Late st Contact Info) Description 05/05/2016 Abstract [facility] [address] [place], [place] [address] , Generic Conversion, Social History Tobacco Use [...] Industry Job Start Date Job End Date 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 Not on file No t on file documented as of this encounter Plan of Treatment Not on file documented as of this encounter Visit Diagnoses Not on filedocumented in this encounter Additional Health Concerns Infection Onset Date Last Indicated Resolved Time COVID-19 Rule Out 04/24/2021 04/24/2021 04/24/2021 12:23 PM DRAINLAYER documented as of this encounter Care Teams Welder Fabricator Relationship Specialty Start Date End Date Vitaly France MD PCP - General FAMILY PRACTICE 09/18/15 Neto Nelson MD CARDIOVASCULAR DISEASE 09/18/15 04/28/18 Santana Quiros MD [place] [employer] Information Systems Instructor CARDIOVASCULAR DISEASE 05/28/18 Marek Monroy MD Consulting Physician INTERVENTIONAL CARDIOLOGY 11/22/18 01/23/21 Clem Bryant MD [place] [employer] Systems Instructor CARDIOVASCULAR DISEASE 04/16/20 Angelita Hopper MD [address] [place] [address] Consulting Physician CARDIOVASCULAR DISEASE 01/24/21 Katia Rivas MD [address] [place], [place] [id number] Consulting Physician CARDIOVASCULAR DISEASE 03/24/22 documented as of this encounter
--- OUTSIDE RECORDS SUMMARY | 2024-09-12 16:33 | XMS_ITS | Encounter Summary ---
Author Organization [facility] Address On license of [facility] [place] [address] Care Team Providers Care Timber Selector Name Role Phone Vitaly France MD Primary Care Provider [phone] Neto Nelson MD Unavailable Unavailab Santana Holder MD Unavailable Unavailabl Marek Breaux MD Unavailable Unavailable Clem Bryant MD Unavailable Unavail able Angelita Hopper MD Unavailable [phone] Katia Rivas MD Unavailable Encounter Details Date Type Department Care Team (Late st Contact Info) Description 07/20/2015 Abstract [facility] [address] [place] [address] Neto Nelson MD Social History Tobacco Use Types Packs/Day [...] Industry Job Start Date Job End Date 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 on file Not on file No t on file documented as of this encounter Plan of Treatment Not on file documented as of this encounter Visit Diagnoses Not on filedocumented in this encounter Additional Health Concerns Infection Onset Date Last Indicated Resolved Time COVID-19 Rule Out 04/24/2021 04/24/2021 04/24/2021 12:23 PM CARE SPECIALIST documented as of this encounter Care Teams Timber Selector Relationship Specialty Start Date End Date Vitaly France MD PCP - General FAMILY PRACTICE 09/18/15 Neto Nelson MD CARDIOVASCULAR DISEASE 09/18/15 04/28/18 Santana Quiros MD [place] Automatic Vulcanizing Operator CARDIOVASCULAR DISEASE 05/28/18 Marek Monroy MD Consulting Physician INTERVENTIONAL CARDIOLOGY 11/22/18 01/23/21 Clem Bryant MD [place] Automatic Vulcanizing Operator CARDIOVASCULAR DISEASE 04/16/20 Angelita Hopper MD [address] [place] [address] Consulting Physician CARDIOVASCULAR DISEASE 01/24/21 Katia Rivas MD [address] [place], [place] [address] Consulting Physician CARDIOVASCULAR DISEASE 03/24/22 documented as of this encounter
--- OUTSIDE RECORDS SUMMARY | 2024-09-12 16:33 | XMS_ITS | Encounter Summary ---
Author Organization [facility] Address [facility] [place] [address] Care Team Providers Care Recreation Specialist Name Role Phone Vitaly France MD Primary Care Provider [phone] Neto Nelson MD Unavailable Unavailab Santana Holder MD Unavailable Unavailabl Marek Breaux MD Unavailable Unavailable Clem Bryant MD Unavailable Unavail able Angelita Hopper MD Unavailable [phone] Katia Rivas MD Unavailable Encounter Details Date Type Department Care Team (Late st Contact Info) Description 02/23/2018 Abstract [facility] [address] [place] [id number] Neto Nelson MD Social History Tobacco Use [...] Industry Job Start Date Job End Date 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 [employer] Not on file Not on file No t on file documented as of this encounter Plan of Treatment Not on file documented as of this encounter Procedures Procedure Name Priority Date/Time Associated Diagnosis Comments CARDIAC PROFILE Routine 02/15/2018 CMP (OUTSIDE LAB) Routine 02/15/2018 BNP Routine 02/15/2018 PROTHROMBIN TIME, VENOUS Routine 02/15/2018 D-DIMER, QUANTITATIVE Routine 02/15/2018 CBC, AUTO, NO DIFF Routine 02/15/2018 TROPONIN, QUANT Routine 02/15/2018 documented in this encounter Results * D-DIMER, QUANTITATIVE (02/15/2018) D-DIMER <100 02/15/2018 us Vitaly France MD LABORATORY Final Result * BNP (02/15/2018) B TYPE NATRIURETIC PEPTIDE 24 02/15/2018 Result Nitesh France MD LABORATORY Final Result * TROPONIN, QUANT (02/15/2018) TROPONIN I 0.022 02/15/2018 Result Nitesh France MD LABORATORY Final Result * CARDIAC PROFILE (CK,CKMB,TROP) (02/15/2018) CPK 71 02/15/2018 Result Nitesh France MD LABORATORY Final Result * PROTIME/INR, VENOUS (02/15/2018) INR WHOLE BLOOD 1.02 02/15/2018 us Vitaly France MD LABORATORY Final Result * CMP (OUTSIDE LAB) (02/15/2018) SODIUM S/P/B 140 POTASSIUM S/P/B 4.40 CHLORIDE S/P/B 103 CO2 28.6 BUN 11.0 CREATININE S/P/B 0.9 0.7 - 1.3 CALCIUM S/P/B 9.4 GLUCOSE 96 mg/dL TOTAL PROTEIN S/P/B 7.6 ALBUMIN S/P/B 3.7 3.5 - 5.0 AST 18 ALT 39 ALKALINE PHOSPHATASE S/P/B 77 BILIRUBIN TOTAL S/P/B 0.3 02/15/2018 us Vitaly France MD LAB-OUTSIDE/ABSTRACTED Final Res ult * CBC, AUTO, NO DIFF (02/15/2018) WBC 7.9 RBC 5.17 HGB 14.5 HCT 43.6 MCV 84.3 MCH 28.0 MCHC 33.3 RDW 13.0 PLT 256 MPV 10.30 02/15/2018 Vitaly France MD LABORATORY Final Result documented in this encounter Visit Diagnoses Not on filedocumented in this encounter Additional Health Concerns Infection Onset Date Last Indicated Resolved Time COVID-19 Rule Out 04/24/2021 04/24/2021 04/24/2021 12:23 PM TALENT MANAGEMENT MANAGER documented as of this encounter Care Teams Recreation Specialist Relationship Specialty Start Date End Date Vitaly France MD PCP - General FAMILY PRACTICE 09/18/15 Neto eNlson MD CARDIOVASCULAR DISEASE 09/18/15 04/28/18 Santana Quiros MD [place] [facility] Administrator CARDIOVASCULAR DISEASE 05/28/18 Marek Monroy MD Consulting Physician INTERVENTIONAL CARDIOLOGY 11/22/18 01/23/21 Clem Bryant MD [place] [facility] Administrator CARDIOVASCULAR DISEASE 04/16/20 Angelita Hopper MD [address] [facility] [place], [place] [address] Consulting Physician CARDIOVASCULAR DISEASE 01/24/21 Katia Rivas MD [address] [place] [address] Consulting Physician CARDIOVASCULAR DISEASE 03/24/22 documented as of this encounter
[2024-09-12 17:04] LABS: Hematocrit 44.8 % (40.0-54.0); Hemoglobin 14.5 g/dL (14.0-18.0); Mean Corpuscular HGB Conc 32.4 g/dL (32-36); Mean Corpuscular Hemoglobin 27.6 pg (27.0-31.0); Mean Corpuscular Volume 85.2 fL (78.0-102.0); Mean Platelet Volume 10.8 fl (8.7-11.0); Platelet Count Result 225 K/mm3 (150-420); Red Blood Count 5.26 M/mm3 (4.70-6.10); Red Cell Distribution Width 13.4 % (11.6-14.4); White Blood Count 7.3 K/mm3 (4.8-10.8)
[2024-09-12 17:05] LABS: Add Urine Microscopic? NO; Appearance Urine Clear (Clear); Bilirubin Urine Negative (Negative); Blood Urine Trace-intact (Negative); Color Urine Yellow (Yellow); Glucose Urine UA Negative (Negative); Ketones Urine 1+ (Negative); Leukocyte Esterase Ur Negative (Negative); Nitrate Urine Negative (Negative); Protein Urine Negative (Negative); Specific Grav Ur >= 1.030 (1.010-1.020)
[2024-09-12 17:31] LABS: Hemoglobin A1C 5.3 % (<5.7)
[2024-09-12 17:37] LABS: Alanine Aminotransferase 39 U/L (6-50); Albumin Level 4.3 g/dL (3.5-5.1); Alkaline Phosphatase 56 U/L (38-126); Anion Gap 6 mmol/L (4-12); Aspartate Amino Transferase 28 U/L (17-59); Bilirubin,Total 0.6 mg/dL (0.2-1.3); Blood Urea Nitrogen 16 mg/dL (9-20); Calcium 9.2 mg/dL (8.4-10.2); Carbon Dioxide 27 mmol/L (22-30); Chloride 105 mmol/L (98-107); Cholesterol 108 mg/dL (0-200); Estimated Glomerular Filt Rate > 60; Glucose 81 mg/dL (65-110); HDL Direct 26 mg/dL; LDL Cholesterol Calculated 56 mg/dL (<130); Osmolality Calculated 286 mOsm/kg (285-295); Potassium 4.8 mmol/L (3.4-5.0); Sodium 138 mmol/L (137-145); Total Protein 7.1 g/dL (6.3-8.2); Triglycerides 131 mg/dL (<150)
== END 2024-09-12 16:30 | disposition home or self-care (01) ==
LOC: CHSLAB 16:31
PROVIDERS: PCP Physician Assistant; Visit Provider Physician Assistant
DX: I25.2 Old myocardial infarction (principal)
CPT/HCPCS: 36415; 80053; 80061; 81003; 83036; 85027